=== PATIENT | female | born 1945 | race Native Hawaiian/Other Pacific Islander ===

== ENCOUNTER 2020-03-03 10:21 | Outpatient (CLI) | payer OTHER ==
[2020-03-03 11:09] LABS: PLATELET COUNT 200 K/uL (152-353)
[2020-03-03 11:11] LABS: POTASSIUM 3.9 mmol/L (3.6-5.2)
== END 2020-03-03 21:51 | disposition home or self-care (01) ==
LOC: LABW 10:21
PROVIDERS: Internal Medicine Gastroenterology
DX: R79.89 Other specified abnormal findings of blood chemistry (principal); K75.81 Nonalcoholic steatohepatitis (NASH); R93.2 Abnormal findings on diagnostic imaging of liver and biliary tract
CPT/HCPCS: 36415; 80053; 81256; 82103; 82104; 82105; 82140; 82172; 82247; 82390; 82977; 83010; 83883; 84460; 85027; 85610; 86038

== ENCOUNTER 2022-05-22 15:02 | Outpatient (CLI) | payer OTHER | END 2022-05-22 19:25 | disposition home or self-care (01) | LOC: RAD 15:02 | PROVIDERS: ATTEND Internal Medicine Pulmonary Disease | DX: R06.09 Other forms of dyspnea (principal) ==